=== PATIENT | male | born 1990 | race American Indian/Alaskan Native ===

== ENCOUNTER 2019-01-31 08:37 | Observation (INO) | payer SELFPAY ==
[2019-01-31] MEDS ORDERED: SODIUM CHLORIDE 0.9% 1000 ML 1,000 ML IV ONE ×2 (09:00→10:33)
--- NOTE | 2019-01-31 09:06 | Emergency Department Report ---
ED Palpitations HPI - General Chief Complaint: Arrhythmia/Palpitations Stated Complaint: ELEVATED HEART RATE Time Seen by Provider: 01/31/19 08:52 Source: patient, EMS Mode of arrival: Stretcher Limitations: No Limitations - History of Present Illness Initial Comments: 28-year-old male with no significant past medical history presents to the hospital complaining of intermittent palpitations, chest pressure, shortness of breath, and tingling sensation for the past 1.5 week. This morning while driving from where it symptoms worsen and the patient felt lightheaded, and with increased palpitations. EMS reports that patient was found in SVT with heart rate increasing to as high as 170s. Vagal maneuvers attempted with temporary reduction a heart rate to the low 110's however, heart rate increased and did not improve until patient received 6-12 adenosine milligrams IV. Patient states he feels better but he still does not feel back to normal. Patient appears to have sinus tachycardia rate 110 on monitor. Patient reports that he recently completed [address] to and from [place] (4hrs each direction). Denies calf tenderness or leg edema. Patient smokes marijuana and black and milds and drinks alcohol on occasion but denies other drug use, daily alcohol use, current medications, or previous surgeries. Initial EKG reveals SVT/neuro complex regular rhythm and rate 140-167 - Related Data Allergies Allergy/AdvReac Type Severity Reaction Status Date / Time No Known Allergies Allergy Verified 01/31/19 10:07 ED Review of Systems ROS: Stated complaint: ELEVATED HEART RATE Other details as noted in HPI Comment: All other systems reviewed and negative ED Past Medical Hx - Past Medical History Previous Medical History?: No - Surgical History Past Surgical History?: No - Social History Smoking Status: Light Tobacco Smoker (smokes black and milds) Substance Use Type: Alcohol (occasional), Marijuana ED Physical Exam - General Limitations: No Limitations - Other Other exam information: General: No acute distress Head: Atraumatic Eyes: normal appearance ENT: Moist mucous membranes Neck: Normal appearance, no midline tenderness Chest: Clear to auscultation bilaterally CV: Tachycardic regular rhythm Abdomen: Soft, normal bowel sounds, nontender, nondistended, no rebound or guarding Back: Normal inspection Extremity: Normal inspection infection, full range of motion, no calf tenderness or leg edema Neuro: Alert O x 3, no facial asymmetry, speech clear, no gross motor sensory deficit Psych: Appropriate behavior Skin: No rash ED Course Vital Signs 01/31/19 01/31/19 01/31/19 08:42 09:00 09:01 Temperature 97.9 F Pulse Rate 104 H 101 H Respiratory 19 13 18 Rate Blood Pressure Blood Pressure [Right] O2 Sat by Pulse 98 100 Oximetry 01/31/19 01/31/19 01/31/19 09:30 10:00 10:30 Temperature Pulse Rate 88 126 H 79 Respiratory 12 20 15 Rate Blood Pressure 138/75 148/78 Blood Pressure [Right] O2 Sat by Pulse 99 100 100 Oximetry 01/31/19 01/31/19 01/31/19 10:59 14:00 15:30 Temperature 98.4 F Pulse Rate 94 H 88 88 Respiratory 16 18 18 Rate Blood Pressure Blood Pressure 138/83 111/56 121/51 [Right] O2 Sat by Pulse 100 98 100 Oximetry 01/31/19 16:30 Temperature 99.1 F Pulse Rate 86 Respiratory 16 Rate Blood Pressure Blood Pressure 108/54 [Right] O2 Sat by Pulse 100 Oximetry - Reevaluation(s) Reevaluation #1: 01/31/19 10:10 pt had another episode of inc palp with hr incr to 140, pt diaphoretic, tachypnea, fasiculations to face muscles. Pt trying to slow his breathing down and calm down. Pt hr did begin to slow back down. EKG sinus tach rate 116. Ativan 1mg iv provided. ct angio pending 01/31/19 10:22 HR now in the 80's after ativan 01/31/19 15:36 Hr remains less than 100 without recurrent tachy after ativan. repeat labs show improved Kcl and anion gap acidosis. neg trop x 2, nsr on repeat ekd rate 92 @ 14:21. awaiting card consult - Consultations Consultation #1: 01/31/19 15:37 cardiology contacted, Keisha and dr Colvin - will come by to evaluate patient 01/31/19 16:30 cards rec admission for echo and stress test ED Medical Decision Making - Lab Data Result diagrams: 01/31/19 09:07 01/31/19 14:39 Lab Results 01/31/19 01/31/19 01/31/19 Range/Units 09:07 09:07 09:07 WBC 5.9 (4.5-11.0) K/mm3 RBC 5.40 H (3.65-5.03) M/mm3 Hgb 15.6 H (11.8-15.2) gm/dl Hct 46.1 H (35.5-45.6) % MCV 85 (84-94) fl MCH 29 (28-32) pg MCHC 34 (32-34) % RDW 13.5 (13.2-15.2) % Plt Count 248 (140-440) K/mm3 Lymph % (Auto) 32.0 (13.4-35.0) % [place] % (Auto) 4.2 (0.0-7.3) % Eos % (Auto) 2.7 (0.0-4.3) % Baso % (Auto) 0.8 (0.0-1.8) % Lymph # 1.9 (1.2-5.4) K/mm3 [place] # 0.2 (0.0-0.8) K/mm3 Eos # 0.2 (0.0-0.4) K/mm3 Baso # 0.0 (0.0-0.1) K/mm3 Seg Neutrophils % 60.3 (40.0-70.0) % Seg Neutrophils # 3.6 (1.8-7.7) K/mm3 D-Dimer 372.45 H (0-234) ng/mlDDU Sodium 137 (137-145) mmol/L Potassium 3.2 L (3.6-5.0) mmol/L Chloride 98.2 (98-107) mmol/L Carbon Dioxide 17 L (22-30) mmol/L Anion Gap 25 mmol/L BUN 10 (9-20) mg/dL Creatinine 0.9 (0.8-1.5) mg/dL Estimated GFR > 60 ml/min BUN/Creatinine Ratio 11 % Glucose 115 H (75-100) mg/dL Calcium 9.6 (8.4-10.2) mg/dL Magnesium 1.50 L (1.7-2.3) mg/dL Troponin T < 0.010 (0.00-0.029) ng/mL TSH (0.270-4.200) mlU/mL Free T4 (0.76-1.46) ng/dL Urine Opiates Screen Urine Methadone Screen Ur Barbiturates Screen Ur Phencyclidine Scrn Ur Amphetamines Screen U Benzodiazepines Scrn Urine Cocaine Screen U Marijuana (THC) Screen Drugs of Abuse Note 01/31/19 01/31/19 01/31/19 Range/Units 09:07 11:07 14:39 WBC (4.5-11.0) K/mm3 RBC (3.65-5.03) M/mm3 Hgb (11.8-15.2) gm/dl Hct (35.5-45.6) % MCV (84-94) fl MCH (28-32) pg MCHC (32-34) % RDW (13.2-15.2) % Plt Count (140-440) K/mm3 Lymph % (Auto) (13.4-35.0) % [place] % (Auto) (0.0-7.3) % Eos % (Auto) (0.0-4.3) % Baso % (Auto) (0.0-1.8) % Lymph # (1.2-5.4) K/mm3 [place] # (0.0-0.8) K/mm3 Eos # (0.0-0.4) K/mm3 Baso # (0.0-0.1) K/mm3 Seg Neutrophils % (40.0-70.0) % Seg Neutrophils # (1.8-7.7) K/mm3 D-Dimer (0-234) ng/mlDDU Sodium 138 (137-145) mmol/L Potassium 4.1 D (3.6-5.0) mmol/L Chloride 104.0 (98-107) mmol/L Carbon Dioxide 18 L (22-30) mmol/L Anion Gap 20 mmol/L BUN 8 L (9-20) mg/dL Creatinine 0.7 L (0.8-1.5) mg/dL Estimated GFR > 60 ml/min BUN/Creatinine Ratio 11 % Glucose 86 (75-100) mg/dL Calcium 8.8 (8.4-10.2) mg/dL Magnesium (1.7-2.3) mg/dL Troponin T < 0.010 (0.00-0.029) ng/mL TSH 0.591 (0.270-4.200) mlU/mL Free T4 1.61 H (0.76-1.46) ng/dL Urine Opiates Screen Presumptive negative Urine Methadone Screen Presumptive negative Ur Barbiturates Screen Presumptive negative Ur Phencyclidine Scrn Presumptive negative Ur Amphetamines Screen Presumptive negative U Benzodiazepines Scrn Presumptive negative Urine Cocaine Screen Presumptive negative U Marijuana (THC) Screen Presumptive positive Drugs of Abuse Note Disclamer - EKG Data -: EKG Interpreted by Me (S1,Q3,T3 noted) EKG shows normal: sinus rhythm, ST-T waves (no stemi) Rate: tachycardia (111) - EKG Data 01/31/19 10:12 repeat ekg at 10:01 sinus tach rate 116 - Radiology Data Radiology results: report reviewed cxr: naf CTA chest: naf - Medical Decision Making pt sx stable after ativan pt evaluated by Cardiology due to recurrent sx pt will be admitted for card workup, echo and stress per card recommendation asa provided iv mag and po kcl for electrolyte abnormalities trop neg x2 + marijuana use sinus rhythm at disposition hospitalist informed - Differential Diagnosis SVT, PE, arrhythmia, anemia, drug abuse, anxiety Critical Care Time: No Critical care attestation.: If time is entered above; I have spent that time in minutes in the direct care of this critically ill patient, excluding procedure time. ED Disposition Clinical Impression: Palpitations, SVT (supraventricular tachycardia), Chest pain, Marijuana use, Hypokalemia, Hypomagnesemia Disposition: DC-09 OP ADMIT IP TO THIS HOSP Is pt being admited?: Yes Does the pt Need Aspirin: Yes Condition: Stable Time of Disposition: 16:30 (Dr marina/hosp)
[2019-01-31 09:32] LABS: Basophils % (Auto) 0.8 % (0.0-1.8); Eosinophils # (Auto) 0.2 K/mm3 (0.0-0.4); Eosinophils % (Auto) 2.7 % (0.0-4.3); Hematocrit 46.1 % (35.5-45.6); Hemoglobin 15.6 gm/dl (11.8-15.2); Lymphocytes # (Auto) 1.9 K/mm3 (1.2-5.4); Mean Corpuscular HGB Conc 34 % (32-34); Mean Corpuscular Volume 85 fl (84-94); Monocytes # (Auto) 0.2 K/mm3 (0.0-0.8); Monocytes % (Auto) 4.2 % (0.0-7.3); Platelet Count 248 K/mm3 (140-440); Red Cell Distribution Width 13.5 % (13.2-15.2)
[2019-01-31 09:55] LABS: BUN/Creatinine Ratio 11; Blood Urea Nitrogen 10 mg/dL (9-20); Calcium 9.6 mg/dL (8.4-10.2); Hemolysis Index 13
[2019-01-31] MEDS ORDERED: LORazepam 2 MG/ML VIAL ONE (10:01)
[2019-01-31] MEDS ORDERED: ADENOSINE 6 MG/2 ML INJ ONE (10:02)
[2019-01-31 10:06] LABS: Free T4 (Free Thyroxine) 1.61 ng/dL (0.76-1.46)
[2019-01-31] MEDS ORDERED: MAGNESIUM SULFATE 2 GM/50 ML BAG IV ONE (10:07)
[2019-01-31] MEDS ORDERED: LORazepam 2 MG/ML VIAL IV ONE (10:08)
[2019-01-31] MEDS ORDERED: POTASSIUM CHLORIDE ER 20 MEQ TAB PO ONE (10:09)
--- NOTE | 2019-01-31 10:19 | XRay Report ---
CHEST 1 VIEW INDICATION: chest pressure, tachycardia. COMPARISON: None FINDINGS: Support devices: None. Heart: Within normal limits. Lungs/Pleura: No acute air space or interstitial disease. Additional findings: None. IMPRESSION: No acute findings. Signer Name: Nixon Powers Jr, MD Signed: 01/31/2019 10:15 AM Workstation Name: [id number]
[2019-01-31 12:09] LABS: Amphetamine Screen,Urine PRESUMPTIVE NEGATIVE; Benzodiazepines Screen,Urine PRESUMPTIVE NEGATIVE; Cocaine Screen,Urine PRESUMPTIVE NEGATIVE; Methadone Screen,Urine PRESUMPTIVE NEGATIVE; Opiate Screen,Urine PRESUMPTIVE NEGATIVE
[2019-01-31 12:22] LABS: Cannabinoid Screen,Urine PRESUMPTIVE POSITIVE
--- NOTE | 2019-01-31 13:30 | Cat Scan Report ---
CTA of the chest with 3D Reconstruction Indication: ,Elevated d-dimer Technique: TECHNIQUE: Axial CT images were obtained through the chest after injection of 100 cc of Omnipaque 350 IV contrast. 3 plane MIP reconstructions were produced. All CT scans at this location are performed using CT dose reduction for ALARA by means of automated exposure control. COMPARISON: Chest radiograph performed earlier today Automatic exposure control was utilized in an attempt to reduce radiation dose. Findings: Pulmonary arteries: The main pulmonary artery and right and left pulmonary artery branches fill satis factorily with contrast. No pulmonary embolus is seen. Lungs: The lungs are clear. Mediastinum: Heart size is normal. No adenopathy is seen. Aorta: Normal in diameter. No dissection seen within limits of this exam. Impression: No pulmonary embolus is seen Signer Name: Randell Edgar MD Signed: 01/31/2019 1:26 PM Workstation Name: [id number]
[2019-01-31 15:10] LABS: BUN/Creatinine Ratio 11; Blood Urea Nitrogen 8 mg/dL (9-20); Calcium 8.8 mg/dL (8.4-10.2); Hemolysis Index 22
[2019-01-31] MEDS ORDERED: ASPIRIN 325 MG TAB PO ONE (16:32)
--- NOTE | 2019-01-31 16:38 | Consultation ---
History of Present Illness Consult date: 01/31/19 Medications and Allergies Allergies Allergy/AdvReac Type Severity Reaction Status Date / Time No Known Allergies Allergy Verified 01/31/19 10:07 Physical Examination Vital Signs Pulse Resp 104 H 19 01/31/19 08:42 01/31/19 08:42 Results 01/31/19 09:07 01/31/19 14:39 CBC 01/31/19 Range/Units 09:07 WBC 5.9 (4.5-11.0) K/mm3 RBC 5.40 H (3.65-5.03) M/mm3 Hgb 15.6 H (11.8-15.2) gm/dl Hct 46.1 H (35.5-45.6) % Plt Count 248 (140-440) K/mm3 Lymph # 1.9 (1.2-5.4) K/mm3 [place] # 0.2 (0.0-0.8) K/mm3 Eos # 0.2 (0.0-0.4) K/mm3 Baso # 0.0 (0.0-0.1) K/mm3 Comprehensive Metabolic Panel 01/31/19 01/31/19 Range/Units 09:07 14:39 Sodium 137 138 (137-145) mmol/L Potassium 3.2 L 4.1 D (3.6-5.0) mmol/L Chloride 98.2 104.0 (98-107) mmol/L Carbon Dioxide 17 L 18 L (22-30) mmol/L BUN 10 8 L (9-20) mg/dL Creatinine 0.9 0.7 L (0.8-1.5) mg/dL Glucose 115 H 86 (75-100) mg/dL Calcium 9.6 8.8 (8.4-10.2) mg/dL Assessment and Plan Detailed Cardiology consult dictated.
[2019-01-31] MEDS: VERAPAMIL 80 MG TAB PO SCH (20:05)
--- NOTE | 2019-01-31 21:26 | History and Physical Report ---
History of Present Illness Date of examination: 01/31/19 Medications and Allergies Allergies Allergy/AdvReac Type Severity Reaction Status Date / Time No Known Allergies Allergy Verified 01/31/19 10:07 Home Medications Medication Instructions Recorded Confirmed Last Taken Type No Known Home Medications [No 01/31/19 01/31/19 Unknown History Reported Home Medications] Active Meds: Active Medications Verapamil HCl ([place]) 40 mg PO Q8H XIOMARA Last Admin: 01/31/19 20:05 Dose: 40 mg Documented by: Exam - Constitutional Vitals: Temp Pulse Resp BP Pulse Ox 97.7 F 77 18 127/64 99 01/31/19 21:00 01/31/19 21:00 01/31/19 21:00 01/31/19 21:00 01/31/19 21:00 Results - Labs CBC & Chem 7: 01/31/19 09:07 01/31/19 14:39 Labs: Laboratory Last Values WBC 5.9 K/mm3 (4.5-11.0) 01/31/19 09:07 RBC 5.40 M/mm3 (3.65-5.03) H 01/31/19 09:07 Hgb 15.6 gm/dl (11.8-15.2) H 01/31/19 09:07 Hct 46.1 % (35.5-45.6) H 01/31/19 09:07 MCV 85 fl (84-94) 01/31/19 09:07 MCH 29 pg (28-32) 01/31/19 09:07 MCHC 34 % (32-34) 01/31/19 09:07 RDW 13.5 % (13.2-15.2) 01/31/19 09:07 Plt Count 248 K/mm3 (140-440) 01/31/19 09:07 Lymph % (Auto) 32.0 % (13.4-35.0) 01/31/19 09:07 [place] % (Auto) 4.2 % (0.0-7.3) 01/31/19 09:07 Eos % (Auto) 2.7 % (0.0-4.3) 01/31/19 09:07 Baso % (Auto) 0.8 % (0.0-1.8) 01/31/19 09:07 Lymph # 1.9 K/mm3 (1.2-5.4) 01/31/19 09:07 [place] # 0.2 K/mm3 (0.0-0.8) 01/31/19 09:07 Eos # 0.2 K/mm3 (0.0-0.4) 01/31/19 09:07 Baso # 0.0 K/mm3 (0.0-0.1) 01/31/19 09:07 Seg Neutrophils % 60.3 % (40.0-70.0) 01/31/19 09:07 Seg Neutrophils # 3.6 K/mm3 (1.8-7.7) 01/31/19 09:07 D-Dimer 372.45 ng/mlDDU (0-234) H 01/31/19 09:07 Sodium 138 mmol/L (137-145) 01/31/19 14:39 Potassium 4.1 mmol/L (3.6-5.0) D 01/31/19 14:39 Chloride 104.0 mmol/L (98-107) 01/31/19 14:39 Carbon Dioxide 18 mmol/L (22-30) L 01/31/19 14:39 Anion Gap 20 mmol/L 01/31/19 14:39 BUN 8 mg/dL (9-20) L 01/31/19 14:39 Creatinine 0.7 mg/dL (0.8-1.5) L 01/31/19 14:39 Estimated GFR > 60 ml/min 01/31/19 14:39 BUN/Creatinine Ratio 11 % 01/31/19 14:39 Glucose 86 mg/dL (75-100) 01/31/19 14:39 Calcium 8.8 mg/dL (8.4-10.2) 01/31/19 14:39 Magnesium 1.50 mg/dL (1.7-2.3) L 01/31/19 09:07 Troponin T < 0.010 ng/mL (0.00-0.029) 01/31/19 14:39 TSH 0.591 mlU/mL (0.270-4.200) 01/31/19 09:07 Free T4 1.61 ng/dL (0.76-1.46) H 01/31/19 09:07 Urine Opiates Screen Presumptive negative 01/31/19 11:07 Urine Methadone Screen Presumptive negative 01/31/19 11:07 Ur Barbiturates Screen Presumptive negative 01/31/19 11:07 Ur Phencyclidine Scrn Presumptive negative 01/31/19 11:07 Ur Amphetamines Screen Presumptive negative 01/31/19 11:07 U Benzodiazepines Scrn Presumptive negative 01/31/19 11:07 Urine Cocaine Screen Presumptive negative 01/31/19 11:07 U Marijuana (THC) Screen Presumptive positive 01/31/19 11:07 Drugs of Abuse Note Disclamer 01/31/19 11:07
[2019-01-31] MEDS ORDERED: ONDANSETRON 4 MG/2 ML INJ IV PRN (21:27)
[2019-01-31] MEDS ORDERED: HYDROmorphone 1 MG/1 ML INJ IV PRN (21:27)
[2019-01-31] MEDS ORDERED: oxyCODONE /ACETAMINOPHEN 5-325MG TAB PO PRN (21:27)
[2019-01-31] MEDS ORDERED: ACETAMINOPHEN 325 MG TAB PO PRN (21:27)
[2019-01-31] MEDS: SODIUM CHLORIDE 0.9% 1000 ML 1,000 ML IV SCH (23:05)
--- NOTE | 2019-01-31 23:58 | Consultation ---
CARDIOLOGY CONSULTATION AGE: 28. SEX: Male. TIME: 4:28 p.m. Seen under the care by Dr. Lara Amor. REFERRING PHYSICIAN: Dr. Dillon Dasilva, hospitalist. HISTORY OF PRESENT ILLNESS: A 28-year-old pleasant -[place] gentleman who was admitted with episodes of recurrent palpitations, lightheadedness and occasional sweating for the past week. EMS was called and he was found to be in supraventricular tachycardia with rate of 150 beats per minute. He was also anxious. He received Ativan and also adenosine 6 mg intravenously 1 dose and he has been maintaining normal sinus rhythm. His potassium level was normal. His serum magnesium was slightly decreased to 1.5 and he has received intravenous magnesium supplements. He did not have any chest pain or shortness of breath at rest or on exertion. No history of syncope. His urine drug screen revealed evidence of marijuana. His D-dimer was increased to 372; however, a CT angiogram was negative for pulmonary embolism. Troponins x 2 were negative and myocardial infarction has been ruled out. He is not hypertensive or diabetic. No history of hyperlipidemia. PAST MEDICAL HISTORY: Nothing pertinent from a cardiac standpoint, SOCIAL HISTORY: Not a cigarette smoker; however, he abuses marijuana -- he consumes marijuana 4-5 times a week. No history of alcoholic abuse. FAMILY HISTORY: Negative for premature coronary artery disease. ALLERGIES: None known. MEDICATIONS: None at this time. REVIEW OF SYSTEMS: CARDIOVASCULAR: As described in the history. NEUROPSYCHIATRIC: History of anxiety. PULMONARY: Negative. RENAL: Negative. GASTROINESTINAL: Negative. BONE AND JOINTS: Negative. Review of rest of the 10 systems is negative. PHYSICAL EXAMINATION: GENERAL: A 28-year-old pleasant -[place] gentleman, not in distress. VITAL SIGNS: He is afebrile, pulse 88 per minute regular, respirations 18 per minute, blood pressure 121/51 mmHg. NEUROLOGIC: He is alert and oriented x 3. HEENT: Negative. NECK: Supple, no JVD, no bruit, no thyromegaly. HEART: PMI is in the normal position, no palpable thrills or heart sounds. Auscultation of heart reveals S1, S2 heard, regular. No S3 or S4. No murmur or rub. EXTREMITIES: Peripheral pulses felt. No edema. LUNGS: Bilateral good and equal. No bronchial breathing. No wheezing. ABDOMEN: Soft, benign, bowel sounds heard. No organomegaly. SKIN: Negative. BONE AND JOINTS: Negative. LABORATORY DATA: Sodium 138, potassium 4.1, BUN and creatinine normal. Glucose 86. Troponins as described in the history. Hemoglobin and hematocrit of 15.6 and 46.1. WBC, platelet count within normal limits. TSH normal. T4 minimally increased to 1.61. EKG normal sinus rhythm, normal axis within normal limits. Monitor strips reveal evidence of SVT -- possibly AV latoya reentrant tachycardia. Chest x-ray, 1 view, no acute findings. IMPRESSION: 1. 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 2. Marijuana use. 3. Hypomagnesemia. 4. Myocardial infarction ruled out. 5. Increased D-dimer; however, no evidence of pulmonary embolism by CT angiogram of the chest. 6. Minimally increased serum T4. RECOMMENDATIONS: 1. Repeat serum magnesium level in the a.m. 2. Place him on verapamil 40 mg p.o. q.8 hours. 3. We will order echocardiogram in the a.m. to assess left ventricular function, rule out mitral valve prolapse or any other valvular lesions. 4. We would also schedule him for an exercise stress test in a.m. for further cardiac evaluation. Thanking again. I will follow you. JOB# [id number] [facility]
[2019-02-01] MEDS: VERAPAMIL 80 MG TAB PO SCH ×3 (00:58→18:05)
[2019-02-01 06:33] LABS: Basophils # (Auto) 0.1 K/mm3 (0.0-0.1); Basophils % (Auto) 0.9 % (0.0-1.8); Eosinophils # (Auto) 0.2 K/mm3 (0.0-0.4); Eosinophils % (Auto) 3.4 % (0.0-4.3); Hematocrit 43.7 % (35.5-45.6); Hemoglobin 14.3 gm/dl (11.8-15.2); Lymphocytes # (Auto) 2.1 K/mm3 (1.2-5.4); Lymphocytes % (Auto) 31.7 % (13.4-35.0); Mean Corpuscular HGB Conc 33 % (32-34); Mean Corpuscular Volume 87 fl (84-94); Monocytes # (Auto) 0.5 K/mm3 (0.0-0.8); Monocytes % (Auto) 7.3 % (0.0-7.3); Platelet Count 225 K/mm3 (140-440); Red Cell Distribution Width 13.6 % (13.2-15.2)
[2019-02-01 06:53] LABS: Alanine Aminotransferase 15 units/L (7-56); Albumin 3.7 g/dL (3.9-5); BUN/Creatinine Ratio 8; Blood Urea Nitrogen 6 mg/dL (9-20); Hemolysis Index 7
[2019-02-01 07:49] LABS: Chol/HDL Ratio 3.52 %
--- NOTE | 2019-02-01 11:21 | Progress Note ---
Assessment and Plan Cardiac status is stable. No arrhythmias noted on telemetry overnight or this morning. TST negative and echo normal. Etiology of arrhythmic episodes yesterday unclear. He may be discharged home from our perspective on current cardiac medications. Recommend follow up in our office in 7-10 days ([phone]). The patient has been seen in conjunction with Dr. Sarmiento, who agrees with the assessment and plan. - Patient Problems (1) Chest pain Current Visit: Yes Status: Acute (2) Marijuana use Current Visit: Yes Status: Chronic (3) Palpitations Current Visit: Yes Status: Acute (4) SVT (supraventricular tachycardia) Current Visit: Yes Status: Acute Subjective Date of service: 02/01/19 Interval history: The patient is lying in bed in [facility]. He has no complaints. SR in 90s on telemetry with no arrhythmias noted. TST negative. Echo reviewed: EF 55 to 60 percent. Objective Last Vital Signs Temp 97.7 F 01/31/19 21:00 Pulse 81 02/01/19 10:00 Resp 22 02/01/19 08:11 BP 135/77 02/01/19 00:58 Pulse Ox 97 01/31/19 22:00 - Physical Examination General: No Apparent Distress HEENT: Positive: PERRL Neck: Positive: neck supple Cardiac: Positive: Reg Rate and Rhythm Lungs: Positive: Normal Exam Neuro: Positive: Grossly Intact Abdomen: Positive: Unremarkable /Rectal: Other (deferred) Skin: Positive: Clear Musculoskeletal: Normal Range of Motion Extremities: Present: normal - Labs and Meds Cardiac Enzymes 02/01/19 Range/Units 05:39 AST 17 (5-40) units/L Lipids 02/01/19 Range/Units 05:39 Triglycerides 39 (2-149) mg/dL Cholesterol 155 (50-199) mg/dL HDL Cholesterol 44 (40-59) mg/dL Cholesterol/HDL Ratio 3.52 % CBC 02/01/19 Range/Units 05:39 WBC 6.7 (4.5-11.0) K/mm3 RBC 5.00 (3.65-5.03) M/mm3 Hgb 14.3 (11.8-15.2) gm/dl Hct 43.7 (35.5-45.6) % Plt Count 225 (140-440) K/mm3 Lymph # 2.1 (1.2-5.4) K/mm3 [place] # 0.5 (0.0-0.8) K/mm3 Eos # 0.2 (0.0-0.4) K/mm3 Baso # 0.1 (0.0-0.1) K/mm3 Comprehensive Metabolic Panel 01/31/19 02/01/19 Range/Units 14:39 05:39 Sodium 138 139 (137-145) mmol/L Potassium 4.1 D 3.7 (3.6-5.0) mmol/L Chloride 104.0 105.4 (98-107) mmol/L Carbon Dioxide 18 L 23 (22-30) mmol/L BUN 8 L 6 L (9-20) mg/dL Creatinine 0.7 L 0.8 (0.8-1.5) mg/dL Glucose 86 81 (75-100) mg/dL Calcium 8.8 9.0 (8.4-10.2) mg/dL AST 17 (5-40) units/L ALT 15 (7-56) units/L Alkaline Phosphatase 59 (35-129) units/L Total Protein 7.4 (6.3-8.2) g/dL Albumin 3.7 L (3.9-5) g/dL - Imaging and Cardiology Exercise stress test: report reviewed (02/01/2019: negative) Echo: report reviewed (02/01/2019: EF 55 to 60 percent)
[2019-02-01] MEDS: SODIUM CHLORIDE 0.9% 1000 ML 1,000 ML IV SCH (11:49)
[2019-02-01] MEDS ORDERED: FLU VACC QUAD 2019-20 (3 YR UP)/PF 60 MCG/0.5 ML SYRINGE IM ONE (12:00)
[2019-02-01 16:14] VITALS: BP 156/107
--- NOTE | 2019-02-01 16:39 | Event Note ---
Date: 02/01/19 See H/p in reports Arrhythmias HTN
--- NOTE | 2019-02-01 16:52 | Discharge Summary ---
Providers - Providers Date of Admission: 01/31/19 21:27 Date of discharge: 02/01/19 Attending physician: TORREY JOLLY 01/31/19 15:35 Consult to Physician [CONS] Urgent Comment: Consulting Provider: JACQUELYN SWARTZ Physician Instructions: Reason For Exam: svt, tachycardia Primary care physician: [facility], [place] Hospitalization Condition: Stable Pertinent studies: TST --Stress test--negative Echo --normal Hospital course: 28-year-old male with no significant past medical history presents to the hospital complaining of intermittent palpitations, chest pressure, shortness of breath, and tingling sensation for the past 1.5 week. This morning while driving from where it symptoms worsen and the patient felt lightheaded, and with increased palpitations. EMS reports that patient was found in SVT with heart rate increasing to as high as 170s. Vagal maneuvers attempted with temporary reduction a heart rate to the low 110's however, heart rate increased and did not improve until patient received 6-12 adenosine milligrams IV. Patient states he feels better but he still does not feel back to normal. Patient appears to have sinus tachycardia rate 110 on monitor. Patient reports that he recently completed [address] to and from [place] (4hrs each direction). Denies calf tenderness or leg edema. Patient smokes marijuana and black and milds and drinks alcohol on occasion but denies other drug use, daily alcohol use, current medications, or previous surgeries. Initial EKG reveals SVT/neuro complex regular rhythm and rate 140-167 Repeat EKG NSR 90/min Cardiac status is stable. No arrhythmias noted on telemetry overnight or this morning. TST negative and echo normal. Etiology of arrhythmic episodes yesterday unclear. Recommend follow up with cardiology in 7-10 days ([phone]). Patient Problems (1) Chest pain No ischemia (2) Marijuana use Counselled (3) Palpitations resolved (4) SVT (supraventricular tachycardia) Resolved If recurs -needs EPS studies (5) HTN D/c on Coreg and Diltiazem Disposition: DC-01 TO HOME OR SELFCARE Core Measure Documentation - Palliative Care Palliative Care/ Comfort Measures: Not Applicable - Core Measures Any of the following diagnoses?: none Exam - Constitutional Vitals: Temp Pulse Resp BP Pulse Ox 98.4 F 89 20 156/107 100 02/01/19 16:13 02/01/19 16:13 02/01/19 16:13 02/01/19 16:13 02/01/19 16:13 General appearance: Present: no acute distress, well-nourished - EENT Eyes: Present: PERRL ENT: hearing intact, clear oral mucosa - Neck Neck: Present: supple, normal ROM - Respiratory Respiratory effort: normal Respiratory: bilateral: CTA - Cardiovascular Heart rate: 90 Rhythm: regular Heart Sounds: Present: S1 & S2. Absent: rub, click - Extremities Extremities: no ischemia, pulses intact, pulses symmetrical, No edema Peripheral Pulses: within normal limits - Abdominal General gastrointestinal: Present: soft, non-tender, non-distended, normal bowel sounds Male genitourinary: Present: deferred, normal - Integumentary Integumentary: Present: clear, warm, dry - Musculoskeletal Musculoskeletal: gait normal, strength equal bilaterally - Psychiatric Psychiatric: appropriate mood/affect, intact judgment & insight - Neurologic Neurologic: CNII-XII intact, moves all extremities - Allied Health Allied health notes reviewed: nursing, case management Plan Activity: no restrictions Diet: low salt Follow up with: DELTA LAU MD [Primary Care Provider] - 7 Days RON MONTES MD [Staff Physician] - 7 Days
--- NOTE | 2019-02-01 17:27 | History and Physical Report ---
CHIEF COMPLAINT: Palpitations for the last 1-1/2 weeks. HISTORY OF PRESENT ILLNESS: A 28-year-old with no significant past medical history, comes in for palpitations for the last 10 days. This morning, the patient was driving when his symptoms worsened and he felt lightheaded with increased palpitations. EMS found him in SVT with heart rate in the 170s. Vagal maneuvers brought it down to 110s. The patient was given adenosine after which he improved. The patient states he feels better. The patient smokes marijuana, but does not do any energy drinks or amphetamines or any medications, which cause increased heart rate. PAST MEDICAL HISTORY: No hypertension, no diabetes. PAST SURGICAL HISTORY: None. SOCIAL HISTORY: Light tobacco smoker and alcohol occasionally and marijuana on a near regular basis. FAMILY HISTORY: Hypertension. REVIEW OF SYSTEMS: Significant for palpitations and severe anxiety for a couple of hours prior to admission. He has been having these symptoms intermittently for 10 days. Otherwise, review of systems negative. PHYSICAL EXAMINATION: GENERAL: Young male, cooperative during examination. VITAL SIGNS: His initial blood pressure was 138/86. Other blood pressure readings are 146/88 and 160/99 and 156/107. Pulse is 89, temperature is 98.4, respirations are 20. HEENT: Unremarkable. Pupils equal and reactive. NECK: Supple, no lymphadenopathy, no thyromegaly. LUNGS: Clear to auscultation and percussion. Good air entry. CARDIOVASCULAR SYSTEM: S1, S2 heard. No gallop, no murmur, no rub. Apical impulse in left fifth intercostal space and midclavicular line. ABDOMEN: Soft and benign. No hepatosplenomegaly. No guarding, no rigidity. Hernial orifices are normal. EXTREMITIES: Good pedal pulses. No pedal edema. CENTRAL NERVOUS SYSTEM: Alert and oriented x 4, nonfocal exam. EKGs: First EKG was consistent with SVT. Second EKG, heart rate of 95 and sinus rhythm. LABORATORY DATA: Significant for hemoglobin of 15.6 and hematocrit of 46.1. WBC and platelet count were normal. D-dimer was 372. Potassium was 3.2, glucose is 115. A1c is 5.4. Magnesium is 1.5. Free T4 is 1.61, slightly high. TSH was near normal. Drug screen was positive for marijuana. ASSESSMENT AND PLAN: 1. Supraventricular tachycardia, resolved. The patient to be admitted for observation. The patient started on verapamil and was switched to Cardizem-CD. 2. Hypertension. The patient initiated on Coreg 6.25 b.i.d. and Cardizem-CD 120 mg p.o. daily. 3. THC dependence. The patient counseled. Also not to take any energy drinks. 4. Deep venous thrombosis prophylaxis, heparin 5000 q. 12. 5. Generalized anxiety disorder. BuSpar 10 mg twice a day p.r.n. JOB# [id number] VSM/NTS
== END 2019-02-01 18:21 | disposition home or self-care (01) ==
LOC: ED 08:37 → 4A 21:27
PROVIDERS: ADMIT Internal Medicine; ATTEND Internal Medicine
DX: I47.1 Supraventricular tachycardia (principal); I10 Essential (primary) hypertension; R07.89 Other chest pain; R00.2 Palpitations; F41.9 Anxiety disorder, unspecified; E87.6 Hypokalemia; E83.42 Hypomagnesemia; F12.10 Cannabis abuse, uncomplicated
CPT/HCPCS: 36415; 71045; 71275; 80048; 80053; 80061; 80307; 83036; 83735; 84439; 84443; 84484; 85025; 85379; 90686; 93005; 93010; 93017; 93306; 96361; 96365; 96375; 99284; G0378; J2060; J2405; J3475; J7030; Q9967; J0153